=== PATIENT | female | born 1975 ===

== ENCOUNTER 2016-08-17 12:30 | Day surgery (SDC) | payer MEDICAID ==
[2016-08-17 13:11] VITALS: BMI 24.7
[2016-08-17] MEDS ORDERED: Lactated Ringer's 500 ML IV ONE (13:13)
[2016-08-17 13:21] VITALS: O2SAT 100
[2016-08-17] MEDS ORDERED: Propofol 10 mg/ml Inj (20 ML) ONE (13:29)
[2016-08-17 14:02] VITALS: RESP 16; TEMP 96.8
[2016-08-17 14:25] VITALS: BP 110/60; PULSE 67
== END 2016-08-17 14:35 | disposition home or self-care (01) ==
LOC: H.ENDO 12:30
PROVIDERS: ATTEND Internal Medicine Gastroenterology
DX: R10.13 Epigastric pain (principal); R12 Heartburn; K31.9 Disease of stomach and duodenum, unspecified